=== PATIENT | female | born 1945 | race Caucasian/White ===

== ENCOUNTER → 2016-12-30 | Outpatient (CLI) | payer MEDICARE, OTHER ==
[~2016-12-30] MED LIST: ALLEGRA ALLERG180 MG PO; ESTRATEST PO; LIPITOR20 M1 PO; OLMESARTAN-HCT1 EACH PO; PROVERA2.5 MG PO; ZETIA10 MG PO
== END | disposition disaster alternative care site (69) ==
LOC: GRAD 10:22
DX: Z87.891 Personal history of nicotine dependence (principal)
CPT/HCPCS: G0297